=== PATIENT | female | born 1995 | race Caucasian/White ===

== ENCOUNTER → 2025-02-05 09:16 | Outpatient (CLI) | payer OTHER, SELFPAY ==
--- NOTE | 2025-02-05 09:17 | DI.US.S_ITS ---
PROCEDURE: US OB <= 14 WEEKS FETUS INDICATIONS: DATING OUTSIDE/PRIOR DATING DATA: Last menstrual period (LMP): 11/09/2024. LMP-based estimated date of delivery (BYRON): 08/19/2025. First dating scan (date and location): 02/05/2025. Estimated date of delivery (BYRON) from first dating scan: 09/12/2025. TECHNIQUE: Real-time scanning was performed of the fetus and maternal pelvic organs, with image documentation. Endovaginal scanning was also performed to better visualize the fetus and maternal ovaries. COMPARISON: None. FINDINGS: Embryo: Single live intrauterine is identified with crown-rump length measuring 2.1 cm corresponding to 8 weeks 5 days Heart rate: 178 beats per minute There is appearance of likely perigestational hemorrhage measuring 1.2 x 0.5 x 0.5 cm. Maternal organs: Ovaries demonstrate likely left corpus luteal cyst.. IMPRESSION: Single live intrauterine with gestational age by ultrasound measuring 8 weeks 5 days. This is markedly discordant from LMP dating of 12 weeks 1 day. Interval follow-up may be detained for additional evaluation of dating. Small presumed perigestational hemorrhage. We strive to produce accurate, complete, and clear reports of imaging services. To assist us in improving patient care, this report was composed using standard report templates and voice recognition software. Therefore, it may contain abnormal punctuation, insertions and/or omissions. Occasional wrong-word or sound-alike substitutions may occur. Though we review the report and make efforts to correct it, we do recommend that the report be read carefully in proper context to recognize any text inaccuracies. Dictated by: Yvonne Menard M.D. on 02/05/2025 at 12:53 Approved by: Yvonne Menard M.D. on 02/05/2025 at 12:55
== END ==
PROVIDERS: PCP Student in an Organized Health Care Education/Training Program; Referring Provider Student in an Organized Health Care Education/Training Program; Visit Provider Student in an Organized Health Care Education/Training Program
DX: Z34.91 Encounter for supervision of normal pregnancy, unspecified, first trimester (principal); Z3A.10 10 weeks gestation of pregnancy
CPT/HCPCS: 76801; 76817

== ENCOUNTER → 2025-04-16 10:28 | Outpatient (CLI) | payer OTHER, SELFPAY ==
[2025-04-16 10:59] LABS: Add Manual Diff / Slide Review NO; Hematocrit 38.1 % (36-46); Hemoglobin 13.7 g/dL (12.0-16.0); Lymphocytes Absolute Auto 1200 /uL (1100-4500); Mean Corpuscular HGB Conc 35.9 % (30-36); Mean Corpuscular Hemoglobin 33.2 PG (26-34); Mean Corpuscular Volume 92.4 fL (80-100); Platelet Count 205 X10^3/uL (150-400)
[2025-04-16 11:53] LABS: Hemoglobin A1C% w Est Avg Glu 4.1 % (4.0-6.0)
[2025-04-16 11:54] LABS: Hepatitis B Surface Antigen NEGATIVE s/c (NEGATIVE)
[2025-04-16 12:11] LABS: HIV 1 & 2 Ab/Ag 4th Gen Combo NEGATIVE (NEGATIVE); Hep C Virus Ab w/Reflex Quant NEGATIVE s/c (NEGATIVE)
[2025-04-16 12:37] LABS: Appearance Urine UA CLEAR; Bilirubin Urine UA 1+ (NEGATIVE); Color Urine UA YELLOW; Glucose Urine UA NEGATIVE (Negative); Ketones Urine UA TRACE (NEGATIVE); Leukocyte Esterase Urine UA NEGATIVE (NEGATIVE); Nitrite Urine UA NEGATIVE (Negative); Occult Blood Urine UA NEGATIVE (Negative); Protein Urine UA TRACE (Negative); Specific Gravity Urine UA 1.020 (1.000-1.035); Urobilinogen Urine UA 1.0 E.U./dL (0.2)
[2025-04-16 12:39] LABS: pH Urine UA 6.5 (4.5-8.0)
[2025-04-16 12:58] LABS: Culture Indicated Urine Cult Not Indicated
[2025-04-16 13:01] LABS: Ictotest Urine Negative (Negative)
[2025-04-16 13:43] LABS: Urine Chlamydia NOT DETECTED; Urine N gonorrhoeae NOT DETECTED
== END ==
PROVIDERS: PCP Student in an Organized Health Care Education/Training Program; Referring Provider Student in an Organized Health Care Education/Training Program; Visit Provider Student in an Organized Health Care Education/Training Program
DX: O99.210 Obesity complicating pregnancy, unspecified trimester (principal); Z3A.18 18 weeks gestation of pregnancy
CPT/HCPCS: 36415; 80055; 81003; 81015; 82105; 82677; 83036; 84702; 86336; 86787; 86803; 86850; 86900; 86901; 87086; 87389; 87491; 87591

== ENCOUNTER → 2025-06-11 10:30 | Outpatient (CLI) | payer OTHER, SELFPAY ==
[2025-06-11 12:34] LABS: Hematocrit 37.6 % (36-46); Hemoglobin 12.9 g/dL (12.0-16.0)
[2025-06-11 13:18] LABS: GTT (PREG) 1 Hour PP 50gm Dose 125 mg/dL (76-139)
== END ==
PROVIDERS: PCP Student in an Organized Health Care Education/Training Program; Referring Provider Student in an Organized Health Care Education/Training Program; Visit Provider Student in an Organized Health Care Education/Training Program
DX: Z34.92 Encounter for supervision of normal pregnancy, unspecified, second trimester (principal); Z3A.24 24 weeks gestation of pregnancy
CPT/HCPCS: 36415; 82950; 85014; 85018

== ENCOUNTER → 2025-07-10 10:47 | Outpatient (CLI) | payer OTHER, SELFPAY ==
--- NOTE | 2025-07-10 10:48 | DI.US.S_ITS ---
PROCEDURE: US OB >= 14 WEEKS FETUS INDICATIONS: Additional View of face and heart needed OUTSIDE/PRIOR DATING DATA: Last menstrual period (LMP): 11/12/2024. LMP-based estimated date of delivery (BYRON): 08/19/2025. First dating scan (date and location): 02/05/2025. Estimated date of delivery (BYRON) from first dating scan: 09/12/2025. The calculations are made using the ultrasound BYRON of 09/12/2025. TECHNIQUE: Real-time scanning was performed of the fetus, with image documentation and biometric measurements. Endovaginal scanning: Not performed COMPARISON: [facility], OB FOLLOW UP, 05/13/2025, 12:32. [facility], OB >= 14 WEEKS FETUS, 04/27/2025, 11:25. FINDINGS: General: A single living intrauterine gestation is present. Presentation: Appears transverse. Placenta: Placental position is posterior, without previa. Amniotic fluid index: 11.5 cm, normal range is 5-24 cm. Single deepest vertical pocket is 3.3 cm. heart rate: 157 beats per minute. Maternal cervical canal: 4.3 cm long. Normal lower limit is 2.5 cm. No funneling. biometrics: Biparietal diameter: 7.4 cm, 29 weeks 5 days Head circumference: 28.9 cm, 31 weeks 5 days Abdominal circumference: 28.0 cm, 33 weeks 0 days Femur length: 5.9 cm, 30 weeks 6 days Clinically estimated gestational age: 30 weeks 6 days Composite gestational age from present scan: 31 weeks 2 days Estimated weight and percentile: 1867 g, 74th percentile. IMPRESSION: 1. Graves living intrauterine at 31 weeks 2 days based on today's ultrasound. Concordant with the prior dating. Fetus is in the 74th percentile for weight. 2. Normal placenta and amniotic fluid. We strive to produce accurate, complete, and clear reports of imaging services. To assist us in improving patient care, this report was composed using standard report templates and voice recognition software. Therefore, it may contain abnormal punctuation, insertions and/or omissions. Occasional wrong-word or sound-alike substitutions may occur. Though we review the report and make efforts to correct it, we do recommend that the report be read carefully in proper context to recognize any text inaccuracies. Dictated by: Mike Melara M.D. on 07/10/2025 at 19:04 Approved by: Mike Melara M.D. on 07/10/2025 at 19:12
== END ==
PROVIDERS: PCP Student in an Organized Health Care Education/Training Program; Referring Provider Student in an Organized Health Care Education/Training Program; Visit Provider Student in an Organized Health Care Education/Training Program
DX: Z34.83 Encounter for supervision of other normal pregnancy, third trimester (principal); Z3A.31 31 weeks gestation of pregnancy
CPT/HCPCS: 76811

== ENCOUNTER 2025-07-29 16:47 | Emergency (ER) | payer OTHER, SELFPAY ==
[2025-07-29 16:56] VITALS: BP 132/80; PULSE 86; RESP 18; O2SAT 100; BMI 43.1
--- NOTE | 2025-07-29 16:58 | EKG_ITS ---
[address] [address] Test Date: 2025-07-29 Pat Name: Margaret Grande Department: Room: Gender: Female Neonatal Pediatric Nurse: : 1995 Requested By: Order Number: [id number] Reading MD: Manjeet Ramírez MD Measurements Intervals Reader Rate: 80 P: 25 OH: 140 QRS: 34 QRSD: 74 T: 23 QT: 362 QTc: 417 Interpretive Statements Normal sinus rhythm with sinus arrhythmia Cannot rule out Anterior infarct , age undetermined Electronically Signed On 07-30-2025 7:38:53 PST by Manjeet Ramírez MD
[2025-07-29 16:59] VITALS: PULSE 88; RESP 12; O2SAT 100
[2025-07-29 17:00] VITALS: PULSE 83; RESP 15; O2SAT 100
--- NOTE | 2025-07-29 17:06 | ED.CHESTPAIN ---
HPI - Chest Pain General Chief Complaint: Chest Pain Stated Complaint: ABD/CHEST/ABD PAIN Time Seen by Provider: 07/29/25 17:06 Source: patient Mode of arrival: Wheelchair Limitations: no limitations History of Present Illness HPI narrative: 29yo @ 33w4d presents to ED with inferior rib/epigastric pain that started this morning with a dull ache and has been increasing throughout the day and is currently significant with radiation to her upper mid back. She reports pain with inhalation and exhalation. Denies any personal or family history of cardiac disease or blood clots. Patient denies any significant medical or surgical history. Denies fevers, chills, nausea, vomiting, diarrhea, shortness of breath, dizziness, headache, or urinary symptoms. Related Data Home Medications ?Medication ?Instructions ?Recorded ?Confirmed quetiapine 300 mg tablet (Seroquel) 300 mg PO BID 04/04/24 07/23/25 [id number] 400 mcg-om3 35 mg-dha 25 tab PO 01/12/25 07/23/25 mg-epa 5 mg-fish oil chewable tablet Previous Rx's ?Medication ?Instructions ?Recorded metformin 500 mg tablet 500 mg PO BID #30 tabs 08/29/24 Allergies Allergy/AdvReac Type Severity Reaction Status Date / Time No Known Drug Allergies Allergy Verified 07/29/25 16:55 Review of Systems Review of Systems ROS Unobtainable: All systems reviewed & are unremarkable except as noted in HPI and below Patient History Medical History (Updated 08/04/25 @ 05:55 by Mp Haley MD) Pneumonia (~2008) Auditory hallucinations Encounter for IUD removal High risk medication use Surgical History (Updated 01/12/25 @ 11:09 by Mary Tee RN) History of root canal procedure (~2022) History of delivery Family History (Updated 01/12/25 @ 11:12 by Mary Tee RN) Father Stroke Alcoholism Grandfather Lung cancer Heavy smoker Granddaughter Pneumonia Social History marital status: number of children: 2 household members: spouse and children lives independently: Yes caregiver/support person: Yes housing: apartment pets and animals: Yes (dogs, cats) education level: vocational occupational status: unemployed current occupational exposures/hazards: No special dixie needs: No travel history: over 6 months ago seatbelt use: always water heater temp set < 120 deg: Yes working smoke detector in home: Yes fire extinguisher in home: Yes carbon monox detector in home: Yes firearms in home: Yes firearms unloaded and locked: Yes do you feel safe at home: Yes Tobacco: How many years used: 15 quit status: considering quitting second hand exposure: No alcohol intake: former substance use type: former substance user well-balanced diet: about half the time daily servings fruits/ve-4 caffeine: No Type(s) of exercise: other Smoking Status: Never smoker Exam Narrative Exam Narrative: Patient appears to be in [id number] distress secondary to pain. Patient with appropriately gravid abdomen. Patient with mild tenderness to inferior ribs. Lungs are clear heart regular rate and rhythm. Initial Vital Signs Initial Vital Signs: Vital Signs Pulse Rate 86 07/29/25 16:56 Respiratory Rate 18 07/29/25 16:56 Blood Pressure 132/80 07/29/25 16:56 Pulse Oximetry 100 07/29/25 16:56 Oxygen Delivery Method Room Air 07/29/25 16:56 HENWV Head: normal to inspection Ears: external ears normal Nose: external nose normal and nares normal Face and sinus: sinuses nontender, face symmetric, ecchymosis not on the right, not on the left and not bilaterally, erythema not on the right, not on the left and not bilaterally and edema not on the right, not on the left and not bilaterally Mouth: lip normal Eyes General: Yes appearance normal, both eyes and all related structures Eyelids: eyelids normal Sclera: sclerae normal Pupils: PERRL Neck Neck: normal visual inspection Resp Effort & Inspection: normal respiratory effort and able to speak in complete sentences Cardio Rate: regular rate Rhythm: regular rhythm Pulses: radial pulses present General: bimanual renal exam normal bilaterally Back/Spine/Pelvis Back: normal to inspection Skin General: no rashes or lesions noted Neuro General: patient alert, patient awake, patient oriented x3, gait normal, moves all extremities, normal light touch, pain and propioception, no focal motor deficits and CN's II-XI intact bilaterally Cognition: normal cognition Speech: speech normal Gait: normal gait Motor: muscle tone normal throughout Sensory Exam: no sensory deficits noted Extrem General: normal to inspection Psych Appearance: grossly normal Mental Status: mental status grossly normal Speech and Movement: speech and movement normal Mood: congruent mood Attitude: cooperative Thought Process: normal Thought Content: normal Judgment: judgment good Course Vital Signs Vital signs: Vital Signs - 8 hr 07/29/25 16:56 Pulse Rate 86 Respiratory Rate 18 Blood Pressure 132/80 Pulse Oximetry 100 Oxygen Delivery Method Room Air MDM - Chest Pain ECG Data Interpretation: [1658] EKG is normal sinus rhythm rate [80] and free of any signs of ischemia or ectopy. No ST segmental elevation or depression. No T wave inversions MDM Narrative Medical decision making narrative: Pt presents w/inferior rib/epigastric pain. Chest x-ray considered for pneumonia, pneumothorax, or congestive heart failure, however deferred due to reassuring hx and physical/. EKG, troponin in consideration of arrhythmia, Acute Coronary Syndrome, Acute Myocardial Infarction, however deferred due to reassuring hx and physical. Patient likely is having an acute issue related to late stage . For safest care of patient will be immediately transported to labor and delivery where she will be assessed by OBGYN on-call Given no history of blood clots, O2 sat normal on room air no significant tachypnea or tachycardia noted. PE unlikely at this time. Acute ACS also unlikely given normal EKG. Patient is stable for transfer to labor and delivery floor Discharge Plan Departure Patient Disposition: Admitted as Observation Clinical Impression: Abdominal pain, acute
--- NOTE | 2025-07-29 17:12 | PC.NURSE ---
1704: Provider Sudha deems safe to discharge from ED and would like patient to go over to labor and delivery for evaluation. Patient wheeled over with family. Patient is alert, oriented and GCS 15 at time of discharge form the emergency department.
--- NOTE | 2025-07-29 17:22 | PC.NURSE ---
Addendum entered by Little Montemayor RN 07/29/25 17:28: Time of note below [id number] Original Note: Provider Sudha in room assessing patient, he asks if any bleeding, spotting, or discharge and she denies. Provider Sudha asks for OB to be notified. ELISE Pizano calls OB and speaks with ELISE Armstrong about patient and notifies her that patient will go to OB once cleared in ED. EKG performed and given to Sudha. Provider Sudha clears patient for discharge and patient wheeled over to OB by this RN and ELISE Pizano.
== END 2025-07-29 17:06 | disposition admitted as inpatient to this hospital (09) ==
PROVIDERS: Emergency Provider Emergency Medicine; PCP Student in an Organized Health Care Education/Training Program
DX: O26.893 Other specified pregnancy related conditions, third trimester (principal); R10.9 Unspecified abdominal pain; Z3A.33 33 weeks gestation of pregnancy
CPT/HCPCS: 36415; 93005; 93010; 99283

== ENCOUNTER 2025-07-29 17:14 | Observation (INO) | payer OTHER, SELFPAY ==
--- NOTE | 2025-07-29 17:48 | DI.US.S_ITS ---
PROCEDURE: US ABDOMEN COMPLETE INDICATIONS: RUQ/epigastric pain in TECHNIQUE: Real-time scanning was performed of the abdominal and retroperitoneal organs, with image documentation. COMPARISON: None. FINDINGS: Liver: Liver measures 17.2 cm. No focal mass. Gallbladder: Multiple mobile foci of increased echogenicity. No wall thickening. No pericholecystic edema. Negative sonographic Shine's sign. Biliary ducts: Intrahepatic bile ducts are non-dilated. Extrahepatic bile duct caliber measures 3.8 mm. Normal is 6-7 mm or less in diameter, or 10 mm or less post-cholecystectomy. Pancreas: Visualized portions of the pancreas are sonographically normal. Miscellaneous: No free abdominal fluid. IMPRESSION: Cholelithiasis without appearance of cholecystitis. Dictated by: Yvonne Menard M.D. on 07/29/2025 at 19:03 Approved by: Yvonne Menard M.D. on 07/29/2025 at 19:04
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
[2025-07-29 17:56] LABS: Add Manual Diff / Slide Review NO; Hematocrit 37.8 % (36-46); Hemoglobin 13.3 g/dL (12.0-16.0); Lymphocytes Absolute Auto 1500 /uL (1100-4500); Mean Corpuscular HGB Conc 35.0 % (30-36); Mean Corpuscular Hemoglobin 31.4 PG (26-34); Mean Corpuscular Volume 89.7 fL (80-100); Platelet Count 185 X10^3/uL (150-400)
[2025-07-29 17:57] LABS: Appearance Urine UA CLEAR; Bilirubin Urine UA NEGATIVE (NEGATIVE); Color Urine UA YELLOW; Glucose Urine UA NEGATIVE (Negative); Ketones Urine UA NEGATIVE (NEGATIVE); Leukocyte Esterase Urine UA NEGATIVE (NEGATIVE); Nitrite Urine UA NEGATIVE (Negative); Occult Blood Urine UA NEGATIVE (Negative); Protein Urine UA NEGATIVE (Negative); Specific Gravity Urine UA 1.010 (1.000-1.035); Urobilinogen Urine UA 0.2 E.U./dL (0.2)
[2025-07-29 18:01] LABS: pH Urine UA 7.0 (4.5-8.0)
[2025-07-29 18:02] LABS: Culture Indicated Urine Cult Not Indicated
[2025-07-29 18:08] LABS: Alanine Aminotransferase 18 IU/L (<35); Albumin 3.8 g/dL (3.5-5.0); Albumin Globulin Ratio 1.2 (1.0-2.8); Alkaline Phosphatase 89 U/L (38-126); Blood Urea Nitrogen 7 mg/dL (7-17); Calcium 9.2 mg/dL (8.4-10.2); Carbon Dioxide 21 mmol/L (22-32); Chloride 107 mmol/L (98-107); Estimated Glomerular Filt Rate > 60 mL/min (>60); Globulin 3.1 g/dL (1.7-4.1); Glucose 104 mg/dL (70-99); HEMOLYSIS < 15 (0-50); Lipase 83 U/L (23-300); Potassium 3.9 mmol/L (3.4-5.1); Sodium 136 mmol/L (137-145); Total Protein 6.9 g/dL (6.3-8.2)
[2025-07-29] MEDS: MAG HYDROX/ALUMINUM/SIMETH SUS 30 ML, LIDOCAINE VISCOUS 2% 15 ML PO (18:08)
[2025-07-29] MEDS: MORPHINE 2 MG/ML INJ IV (18:59)
[2025-07-29] MEDS: LACTATED RINGERS 1,000 ML 125 ML IV (19:02)
== END 2025-07-29 20:18 | disposition home or self-care (01) ==
PROVIDERS: Admitting Provider Emergency Medicine; PCP Student in an Organized Health Care Education/Training Program; Referring Provider Obstetrics & Gynecology; Visit Provider Obstetrics & Gynecology
DX: O26.893 Other specified pregnancy related conditions, third trimester (principal); R10.11 Right upper quadrant pain; R07.9 Chest pain, unspecified; R10.13 Epigastric pain; Z3A.33 33 weeks gestation of pregnancy
CPT/HCPCS: 36415; 59025; 59050; 76700; 76815; 80053; 81001; 83690; 85025; 87086; 93005; 93010; 96360; 99283; G0378; G0379; J2270; J7120

== ENCOUNTER 2025-08-04 10:47 | Outpatient (CLI) | payer OTHER, SELFPAY ==
[2025-08-04] MEDS: RHO(D) IMMUNE GLOBULIN 1,500 UNIT SYRINGE 1500 UNIT IM (11:55)
== END 2025-08-04 12:01 | disposition home or self-care (01) ==
LOC: LABOR 11:10 → OB 13:38
PROVIDERS: PCP Student in an Organized Health Care Education/Training Program; Referring Provider Student in an Organized Health Care Education/Training Program; Visit Provider Student in an Organized Health Care Education/Training Program
DX: O99.213 Obesity complicating pregnancy, third trimester (principal); E66.9 Obesity, unspecified; O99.333 Smoking (tobacco) complicating pregnancy, third trimester; F17.290 Nicotine dependence, other tobacco product, uncomplicated; Z3A.34 34 weeks gestation of pregnancy
CPT/HCPCS: 59025; 96372; G0378; G0379; J2790

== ENCOUNTER 2025-08-10 19:12 | Observation (INO) | payer OTHER, SELFPAY ==
[2025-08-10] VITALS (8 sets, daily range): BP systolic 105–118; BP diastolic 50–71; PULSE 71–87; RESP 18–20; TEMP 36.7; O2SAT 98–100; BMI 43.0
--- NOTE | 2025-08-10 20:00 | DI.US.S_ITS ---
PROCEDURE: US ABDOMEN LIMITED INDICATIONS: RUQ pain, known gallstones TECHNIQUE: Real-time scanning was performed of the abdominal and retroperitoneal organs, with image documentation. COMPARISON: [facility], US, US ABDOMEN COMPLETE, 07/29/2025, 18:27. FINDINGS: Liver: Limited evaluation of the liver appear unremarkable. Gallbladder: Multiple mobile gallstones. No wall thickening. No pericholecystic fluid. Positive/abnormal sonographic Shine sign Biliary ducts: Intrahepatic bile ducts are non-dilated. Extrahepatic bile duct caliber measures 5 mm. Normal is 6-7 mm or less in diameter, or 10 mm or less post-cholecystectomy. Pancreas: Pancreas not visualized secondary to overlying bowel gas. Miscellaneous: No free abdominal fluid. IMPRESSION: Cholelithiasis with sonographic findings suggestive of acute cholecystitis. Dictated by: Nguyễn Chatman M.D. on 08/10/2025 at 22:06 Approved by: Nguyễn Chatman M.D. on 08/10/2025 at 22:08
[2025-08-10 21:50] LABS: Add Manual Diff / Slide Review NO; Hematocrit 37.1 % (36-46); Hemoglobin 12.9 g/dL (12.0-16.0); Lymphocytes Absolute Auto 1700 /uL (1100-4500); Mean Corpuscular HGB Conc 34.7 % (30-36); Mean Corpuscular Hemoglobin 31.2 PG (26-34); Mean Corpuscular Volume 89.9 fL (80-100); Platelet Count 184 X10^3/uL (150-400)
[2025-08-10] MEDS: ACETAMINOPHEN IV 1,000 MG/100 ML VIAL 400 MG IV (21:51)
[2025-08-10] MEDS: SODIUM CHLORIDE 0.9% 1,000 ML 1000 ML IV (21:51)
[2025-08-10 21:58] LABS: INR 0.9 (0.9-1.3); Prothrombin Time 10.7 SECONDS (9.4-12.5)
[2025-08-10 22:01] LABS: PTT Partial Thromboplastin Tim 25 SECONDS (25.1-36.5)
[2025-08-10 22:03] LABS: Alanine Aminotransferase 19 IU/L (<35); Albumin 3.7 g/dL (3.5-5.0); Albumin Globulin Ratio 1.2 (1.0-2.8); Alkaline Phosphatase 100 U/L (38-126); Blood Urea Nitrogen 5 mg/dL (7-17); Calcium 9.2 mg/dL (8.4-10.2); Carbon Dioxide 22 mmol/L (22-32); Chloride 107 mmol/L (98-107); Estimated Glomerular Filt Rate > 60 mL/min (>60); Globulin 3.0 g/dL (1.7-4.1); Glucose 103 mg/dL (70-99); HEMOLYSIS < 15 (0-50); Lipase 75 U/L (23-300); Potassium 3.7 mmol/L (3.4-5.1); Sodium 136 mmol/L (137-145); Total Protein 6.7 g/dL (6.3-8.2)
--- NOTE | 2025-08-10 23:17 | ED_ITS ---
HPI - Abdominal Pain General Chief Complaint: Abdominal Pain Stated Complaint: Upper abd px/flair up Time Seen by Provider: 08/10/25 20:00 Source: patient Mode of arrival: Ambulatory History of Present Illness HPI narrative: Patient is a 29-year-old female 002 at 33 weeks and 4 days presenting today with right upper quadrant pain. Reports say that it started this morning with a dull ache increasing throughout the day located in right upper quadrant radiating to her back. She was actually seen and evaluated on 07/29/2025 for something similar, ultimately admitted overnight, evaluated by OB discharged home. She currently is at the side of the bed moaning in pain unable to get comfortable tearful holding her right upper quadrant. She reports that this does not feel like labor does not feel like her water has broke not having lower abdominal pain or pressure or back pain. Related Data Home Medications ?Medication ?Instructions ?Recorded ?Confirmed quetiapine 300 mg tablet (Seroquel) 300 mg PO BID 03/1108/04/25 [id number] 400 mcg-om3 35 mg-dha 25 tab PO 01/12/2507/12 mg-epa 5 mg-fish oil chewable tablet Previous Rx's ?Medication ?Instructions ?Recorded metformin 500 mg tablet 500 mg PO BID #30 tabs 08/29 Allergies Allergy/AdvReac Type Severity Reaction Status Date / Time No Known Drug Allergies Allergy Verified 08/10/25 19:51 Patient History Medical History (Updated 08/11/25 @ 02:04 by Cheyenne Fraga DO) Pneumonia (~2008) Auditory hallucinations Encounter for IUD removal High risk medication use Surgical History (Updated 01/12/25 @ 11:09 by Mary Tee RN) History of root canal procedure (~2022) History of delivery Family History (Updated 01/12/25 @ 11:12 by Mary Tee RN) Father Stroke Alcoholism Grandfather Lung cancer Heavy smoker Granddaughter Pneumonia Social History marital status: number of children: 2 household members: spouse and children lives independently: Yes caregiver/support person: Yes housing: apartment pets and animals: Yes (dogs, cats) education level: vocational occupational status: unemployed current occupational exposures/hazards: No special dixie needs: No travel history: over 6 months ago seatbelt use: always water heater temp set < 120 deg: Yes working smoke detector in home: Yes fire extinguisher in home: Yes carbon monox detector in home: Yes firearms in home: Yes firearms unloaded and locked: Yes do you feel safe at home: Yes Tobacco: How many years used: 15 quit status: considering quitting second hand exposure: No alcohol intake: former substance use type: former substance user well-balanced diet: about half the time daily servings fruits/ve-4 caffeine: No Type(s) of exercise: other tobacco type: vaping Exam Initial Vital Signs Initial Vital Signs: Vital Signs Temperature 98.0 F 08/10/25 19:51 Pulse Rate 85 08/10/25 19:51 Respiratory Rate 18 08/10/25 19:51 Blood Pressure 118/70 08/10/25 19:51 Pulse Oximetry 100 08/10/25 19:51 Oxygen Delivery Method Room Air 08/10/25 19:51 GENERAL: Alert tearful 29-year-old female at side of bed clearly uncomfortable grabbing right upper quadrant HEENT: Head atraumatic,EOMI, pupils reactive, face symmetric, moist mucous membranes CARDIOVASCULAR: Regular rate and rhythm without murmurs, rubs or gallops. RESPIRATORY: Breath sounds equal bilaterally, no wheezes rales or rhonchi. ABDOMEN: Soft, gravid tender right upper quadrant : No CVA tenderness EXTREMITIES: Normal range of motion, no clubbing or edema. Neurovascularly intact NEUROLOGICAL: Alert and oriented x4.Normal gait and speech. Cranial nerves II through XII grossly intact. SKIN: Warm, dry, no laceration, no petechiae, no rashes or lesions. Course Orders Ordered: ED Orders 08/10/25 20:00 US abdomen limited Stat 08/10/25 21:40 Complete Blood Count AUTO DIFF Stat Comprehensive Metabolic Panel Stat Lipase Stat PTT Partial Thromboplastin Carlos Alberto Stat Prothrombin Time INR Stat 08/10/25 23:35 Consult to Physician Stat Acetaminophen (Acetaminophen 325 Mg Tablet) 650 mg PO Q6HR PRN PRN Reason: Fever/Mild Pain (1-3) Hydromorphone HCl (Hydromorphone Hcl 0.5 Mg/0.5 Ml Syringe) 0.5 mg IV Q2H PRN PRN Reason: Pain, Severe (7-10) Sodium Chloride (Normal Saline 0.9%) 1,000 mls @ 125 mls/hr IV CONT CIRO Last Admin: 08/10/25 23:38 Dose: 125 mls/hr Documented By: ALBERTO Ondansetron HCl (Ondansetron 4 Mg/2 Ml Inj) 4 mg IV Q4HR PRN PRN Reason: Nausea And Vomiting Discontinued Medications Hydromorphone HCl (Hydromorphone 1 Mg/Ml Syringe) 1 mg IV NOW ONE Stop: 08/10/25 23:17 Last Admin: 08/10/25 23:18 Dose: 1 mg Documented By: JANET Acetaminophen ([place] [place]) 1,000 mg in 100 mls @ 400 mls/hr IV NOW ONE Stop: 08/10/25 20:14 Last Infusion: 08/10/25 22:08 Dose: Infused Documented By: Admin: 08/10/25 21:51 Dose: 400 mls/hr Documented By: JANET Sodium Chloride (Normal Saline 0.9%) 1,000 mls @ 1,000 mls/hr IV BOLUS ONE Stop: 08/10/25 21:46 Last Infusion: 08/10/25 22:39 Dose: Infused Documented By: Admin: 08/10/25 21:51 Dose: 1,000 mls/hr Documented By: JANET Ceftriaxone Sodium 1,000 mg/ (Sodium Chloride) 100 mls @ 200 mls/hr IV NOW ONE Stop: 08/10/25 23:31 Last Infusion: 08/11/25 00:41 Dose: Infused Documented By: Admin: 08/10/25 23:36 Dose: 200 mls/hr Documented By: ALBERTO Metronidazole (Flagyl) 500 mg in 100 mls @ 100 mls/hr IV NOW ONE Stop: 08/11/25 00:34 Last Infusion: 08/11/25 01:33 Dose: Infused Documented By: Admin: 08/11/25 00:33 Dose: 100 mls/hr Documented By: ALBERTO Vital Signs Vital signs: Vital Signs - 8 hr 08/10/25 19:51 08/10/25 21:47 08/10/25 21:49 Temperature 98.0 F Pulse Rate 85 71 73 Respiratory Rate 18 20 Blood Pressure 118/70 Pulse Oximetry 100 99 98 Oxygen Delivery Method Room Air Room Air 08/10/25 21:49 08/10/25 22:00 08/10/25 22:00 Temperature Pulse Rate 72 Respiratory Rate Blood Pressure 108/60 105/63 Pulse Oximetry 99 Oxygen Delivery Method 08/10/25 22:30 08/10/25 22:30 08/10/25 23:00 Temperature Pulse Rate 79 79 Respiratory Rate Blood Pressure 109/71 Pulse Oximetry 100 98 Oxygen Delivery Method 08/10/25 23:02 08/10/25 23:02 08/10/25 23:30 Temperature Pulse Rate 78 87 Respiratory Rate 18 Blood Pressure 110/50 L Pulse Oximetry 100 98 Oxygen Delivery Method Room Air MDM - Abdominal Pain Lab Data 08/10/25 21:40 08/10/25 21:40 Labs: Lab Results 08/10/25 Range/Units 21:40 WBC 7.3 (4.5-11.0) X10^3/uL RBC 4.13 (4.0-5.2) X10^6/uL Hgb 12.9 (12.0-16.0) g/dL Hct 37.1 (36-46) % MCV 89.9 (80-100) fL MCH 31.2 (26-34) PG MCHC 34.7 (30-36) % RDW 13.6 (11.6-14.8) % Plt Count 184 (150-400) X10^3/uL Neut % (Auto) 68.8 (50-75) % Lymph % (Auto) 24.0 L (25-40) % [place] % (Auto) 6.6 (3-14) % Eos % (Auto) 0.4 L (2-4) % Baso % (Auto) 0.2 (0-2) % Neut # (Auto) 5000 (1039-6118) /uL Lymph # (Auto) 1700 (7899-6378) /uL [place]linger # (Auto) 500 (0-900) /uL Eos # (Auto) 0 (0-450) /uL Baso # (Auto) 0 (0-100) /uL PT 10.7 (9.4-12.5) SECONDS INR 0.9 (0.9-1.3) APTT 25 L (25.1-36.5) SECONDS Sodium 136 L (137-145) mmol/L Potassium 3.7 (3.4-5.1) mmol/L Chloride 107 (98-107) mmol/L Carbon Dioxide 22 (22-32) mmol/L BUN 5 L (7-17) mg/dL Creatinine 0.51 L (0.52-1.04) mg/dL Estimated GFR > 60 (>60) mL/min BUN/Creatinine Ratio 9.8 (6-22) Glucose 103 H (70-99) mg/dL Calcium 9.2 (8.4-10.2) mg/dL Total Bilirubin 0.6 (0.2-1.3) mg/dL AST 23 (14-36) IU/L ALT 19 (<35) IU/L Alkaline Phosphatase 100 (38-126) U/L Total Protein 6.7 (6.3-8.2) g/dL Albumin 3.7 (3.5-5.0) g/dL Globulin 3.0 (1.7-4.1) g/dL Albumin/Globulin Ratio 1.2 (1.0-2.8) Lipase 75 (23-300) U/L Imaging Data US - abdomen: Radiologist's Impression: PROCEDURE: US ABDOMEN LIMITED INDICATIONS: RUQ pain, known gallstones TECHNIQUE: Real-time scanning was performed of the abdominal and retroperitoneal organs, with image documentation. COMPARISON: [facility], US, US ABDOMEN COMPLETE, 07/29/2025, 18:27. FINDINGS: Liver: Limited evaluation of the liver appear unremarkable. Gallbladder: Multiple mobile gallstones. No wall thickening. No pericholecystic fluid. Positive/abnormal sonographic Shine sign Biliary ducts: Intrahepatic bile ducts are non-dilated. Extrahepatic bile duct caliber measures 5 mm. Normal is 6-7 mm or less in diameter, or 10 mm or less post-cholecystectomy. Pancreas: Pancreas not visualized secondary to overlying bowel gas. Miscellaneous: No free abdominal fluid. IMPRESSION: Cholelithiasis with sonographic findings suggestive of acute cholecystitis. Dictated by: Nguyễn Chatman M.D. on 08/10/2025 at 22:06 MDM Narrative Medical decision making narrative: MDM CC: Abdominal pain Complicating co-morbidities: Currently 33 weeks not taking Seroquel or metformin at this time, as stated on her med Data collected from: Patient has been records Medical records reviewed: Previous record and visit from 07/29/2025 reviewed. Ultrasound at that time showed cholelithiasis without cholecystitis. Differential considered: Active labor cholecystitis cholelithiasis choledocholithiasis pancreatitis appendicitis Exam documented above, pertinent findings include: Alert tearful 29-year-old female appears in pain uncomfortable tender right upper quadrant Lab Test results independently reviewed as above. Pertinent findings: CBC no leukocytosis within normal limits CMP no abnormality Bilirubin liver enzymes within normal limits lipase 75 Imaging studies independently reviewed: Ultrasound shows cholelithiasis with cholecystitis Consultations: [id number] updated on patient's symptoms test results agrees to consult if surgery requests, okay to get NST. Would get NST pre and postop if needed 232, Dr. Heaton surgery on-call updated on patient's symptoms test results OB recommendations agrees to admit to observation antibiotics Rocephin Flagyl monitor Treatments: Tylenol Rocephin Flagyl Dilaudid Zofran IV fluids Re-evaluations: Initially patient did fine with Tylenol however pain started escalating just prior to my evaluation tearful she received Dilaudid and it did start to help in calm down. Discussion: Patient 29-year-old female currently 33 weeks presenting today with right upper quadrant pain. He has evidence of cholelithiasis with cholecystitis on ultrasound. She has no leukocytosis no fever liver enzymes and bilirubin within normal limits but multiple stones seen on ultrasound. Patient's pain is much better after Dilaudid. Blood pressure within normal limits unclear return for preeclampsia, or abruption Nursing did do an NST in the ED which per nursing reports it is nonreactive and this was relayed to Dr. Ernandez by nursing staff. Discharge Plan Departure Patient Disposition: Admitted as Observation Clinical Impression: Cholecystitis, acute with cholelithiasis, Third trimester Admit Date/Time: 08/10/25 23:37 Admit Provider: Enio Heaton
[2025-08-10] MEDS: SODIUM CHLORIDE 0.9% 1,000 ML 125 ML IV (23:38)
[2025-08-11] VITALS (8 sets, daily range): BP systolic 101–110; BP diastolic 56–71; PULSE 70–87; RESP 15–16; O2SAT 98–100; BMI 43.0
[2025-08-11] MEDS: metroNIDAZOLE 500 MG/100 ML PIGGYBACK 100 MG IV (00:33)
[2025-08-11 00:37] LABS: Appearance Urine UA CLEAR; Bilirubin Urine UA NEGATIVE (NEGATIVE); Color Urine UA YELLOW; Glucose Urine UA NEGATIVE (Negative); Ketones Urine UA 1+ (NEGATIVE); Leukocyte Esterase Urine UA NEGATIVE (NEGATIVE); Nitrite Urine UA NEGATIVE (Negative); Occult Blood Urine UA NEGATIVE (Negative); Protein Urine UA NEGATIVE (Negative); Specific Gravity Urine UA 1.010 (1.000-1.035); Urobilinogen Urine UA 0.2 E.U./dL (0.2)
[2025-08-11 00:41] LABS: pH Urine UA 6.5 (4.5-8.0)
[2025-08-11 00:48] LABS: Culture Indicated Urine Cult Not Indicated
--- NOTE | 2025-08-11 01:38 | PC.NURSE ---
Non-reactive NST after 40 mins on monitor. Multiple position changes and stimulation performed. EFM Category 1 tracing baseline 125 bpm, moderate variability, no decels, no accels. Reported findings to Dr. Whalen, OB OC, and is aware of findings. [id number].
[2025-08-11 06:25] LABS: Add Manual Diff / Slide Review NO; Hematocrit 32.1 % (36-46); Hemoglobin 11.3 g/dL (12.0-16.0); Lymphocytes Absolute Auto 1700 /uL (1100-4500); Mean Corpuscular HGB Conc 35.2 % (30-36); Mean Corpuscular Hemoglobin 31.6 PG (26-34); Mean Corpuscular Volume 89.8 fL (80-100); Platelet Count 153 X10^3/uL (150-400)
[2025-08-11 06:36] LABS: Alanine Aminotransferase 17 IU/L (<35); Albumin 2.9 g/dL (3.5-5.0); Albumin Globulin Ratio 1.1 (1.0-2.8); Alkaline Phosphatase 78 U/L (38-126); Blood Urea Nitrogen 4 mg/dL (7-17); Calcium 8.2 mg/dL (8.4-10.2); Carbon Dioxide 21 mmol/L (22-32); Chloride 110 mmol/L (98-107); Estimated Glomerular Filt Rate > 60 mL/min (>60); Globulin 2.7 g/dL (1.7-4.1); Glucose 87 mg/dL (70-99); HEMOLYSIS 17 (0-50); Potassium 4.1 mmol/L (3.4-5.1); Sodium 135 mmol/L (137-145); Total Protein 5.6 g/dL (6.3-8.2)
--- NOTE | 2025-08-11 06:42 | P.DS_ITS ---
History of Present Illness History of Present Illness Date Patient Seen: 08/11/25 Time Patient Seen: 06:42 Chief complaint: Upper abd px/flair up Narrative: 29yo F, 35 weeks , currently scheduled for 09/[address] Hawkins. Presents to ED with symptomatic cholelithiasis. Ultrasound demonstrates no wall thickening or pericholecystic fluid, but positive sonographic Shine's sign. WBC normal; LFTs normal. Discharge Providers Provider Date of admission: 08/10/25 23:37 Discharge Date: 08/11/25 Primary care physician: Rebeka Hawkins MD Consults: 08/10/25 23:35 Consult to Physician Stat Comment: Consulting Provider: Lashon Whalen Reason for consultation: Cholelithiasis Has provider been notified: Yes Discharge provider: Enio Heaton MD Summary Hospital Course Discharge Diagnosis: Symptomatic cholelithiasis Hospital Course: Patient presented to ED with RUQ pain uncontrolled by acetaminophen and given IV Rocephin/Flagyl and IV pain meds. Admitted but remained in ED because of no beds. This morning, she feels much better. Plan is to control symptoms until she delivers. She desires lap choley day after and we discussed pros and cons of timing. Discussed with Dr. Hawkins by phone. Will continue po abx Augmentin, hydrocodone for pain and ondansetron for nausea. She will return with uncontrolled pain, n/v, fever, jaundice. Status at Discharge Cognitive/behavioral status at discharge: oriented Functional status at discharge: independent ambulation Overall status at discharge: patient is progressing back to baseline Time Spent with Patient Time spent: Greater than 30 minutes Exam Vital Signs (past 8 hours): - 08/10/25 23:00 08/10/25 23:02 08/10/25 23:02 Pulse Rate 79 78 Respiratory Rate Blood Pressure 110/50 L Pulse Oximetry 98 100 Oxygen Delivery Method 08/10/25 23:30 08/11/25 00:00 08/11/25 00:10 Pulse Rate 87 85 Respiratory Rate 18 Blood Pressure 101/56 L Pulse Oximetry 98 98 Oxygen Delivery Method Room Air 08/11/25 00:10 08/11/25 00:30 08/11/25 01:00 Pulse Rate 77 82 84 Respiratory Rate Blood Pressure Pulse Oximetry 100 98 100 Oxygen Delivery Method 08/11/25 01:30 08/11/25 01:48 08/11/25 01:49 Pulse Rate 81 70 70 Respiratory Rate 15 Blood Pressure 110/71 Pulse Oximetry 99 99 98 Oxygen Delivery Method Room Air 08/11/25 01:49 Pulse Rate Respiratory Rate Blood Pressure 110/71 Pulse Oximetry Oxygen Delivery Method Oxygen Delivery Method Room Air Narrative Exam Narrative: Const General: healthy appearing, comfortable and no acute distress Orientation: alert and oriented x3 HENMT Ears: hearing grossly normal bilaterally Eyes Visual Michelle: normal visual michelle by confrontation Conjunctivae: conjunctivae normal Sclera: sclerae normal EOM: EOM intact bilaterally Resp Effort & Inspection: normal respiratory effort and able to speak in complete sentences Cardio Rate: regular rate GI Palpation: soft, gravid, +RUQ pain, improved pain control after IV meds and abx Extrem General: no pedal edema and no calf tenderness Objective Labs 08/11/25 06:14 08/11/25 06:14 Labs: Laboratory Results - last 24 hr 08/10/25 08/10/25 08/11/25 21:40 23:45 06:14 WBC 7.3 6.2 RBC 4.13 3.57 L Hgb 12.9 11.3 L Hct 37.1 32.1 L MCV 89.9 89.8 MCH 31.2 31.6 MCHC 34.7 35.2 RDW 13.6 14.0 Plt Count 184 153 Neut % (Auto) 68.8 66.1 Lymph % (Auto) 24.0 L 26.7 [place] % (Auto) 6.6 6.7 Eos % (Auto) 0.4 L 0.4 L Baso % (Auto) 0.2 0.1 Neut # (Auto) 5000 4100 Lymph # (Auto) 1700 1700 [place] # (Auto) 500 400 Eos # (Auto) 0 0 Baso # (Auto) 0 0 PT 10.7 INR 0.9 APTT 25 L Sodium 136 L 135 L Potassium 3.7 4.1 Chloride 107 110 H Carbon Dioxide 22 21 L BUN 5 L 4 L Creatinine 0.51 L 0.45 L Estimated GFR > 60 > 60 BUN/Creatinine Ratio 9.8 8.9 Glucose 103 H 87 Calcium 9.2 8.2 L Total Bilirubin 0.6 0.5 AST 23 23 ALT 19 17 Alkaline Phosphatase 100 78 Total Protein 6.7 5.6 L Albumin 3.7 2.9 L Globulin 3.0 2.7 Albumin/Globulin Ratio 1.2 1.1 Lipase 75 Urine Color Yellow Urine Appearance Clear Urine pH 6.5 Ur Specific [place]ahan 1.010 Urine Protein Negative Urine Glucose (UA) Negative Urine Ketones 1+ H Urine Occult Blood Negative Urine Nitrate Negative Urine Bilirubin Negative Urine Urobilinogen 0.2 Ur Leukocyte Esterase Negative Urine RBC None seen Urine WBC None seen Ur Squamous Epith Cells 1-5 /hpf Urine Bacteria None seen Ur Culture Indicated? Cult not indicated Vol Urine Centrifuged 10ml (spun) [facility] Medical History (Updated 08/11/25 @ 02:04 by Cheyenne Fraga DO) Pneumonia (~2008) Auditory hallucinations Encounter for IUD removal High risk medication use Surgical History (Updated 01/12/25 @ 11:09 by Mary Tee RN) History of root canal procedure (~2022) History of delivery Family History (Updated 01/12/25 @ 11:12 by Mary Tee RN) Father Stroke Alcoholism Grandfather Lung cancer Heavy smoker Granddaughter Pneumonia Social History marital status: number of children: 2 household members: spouse and children lives independently: Yes caregiver/support person: Yes housing: apartment pets and animals: Yes (dogs, cats) education level: vocational occupational status: unemployed current occupational exposures/hazards: No special dixie needs: No travel history: over 6 months ago seatbelt use: always water heater temp set < 120 deg: Yes working smoke detector in home: Yes fire extinguisher in home: Yes carbon monox detector in home: Yes firearms in home: Yes firearms unloaded and locked: Yes do you feel safe at home: Yes Tobacco: How many years used: 15 quit status: considering quitting second hand exposure: No alcohol intake: former substance use type: former substance user well-balanced diet: about half the time daily servings fruits/ve-4 caffeine: No Type(s) of exercise: other Discharge Assessment & Plan Assessment and Plan Assessment: Symptomatic cholelithiasis Plan of Treatment: Plan to control symptoms until after delivery Patient desires lap choley after where possible She will return for new or worsening symptoms D/W Dr. Hawkins Discharge Plan Discharge Plan Patient Disposition: Home Provider Discharge Comment: Take antibiotics until gone Take pain and nausea meds as needed Eat bland diet without fats, greasy or fried foods Return to ED with uncontrolled pain, nausea, vomiting, fever, jaundice Discharge orders & Medications Prescriptions: New hydrocodone-acetaminophen 5-325 mg tablet 1 tab PO Q4H PRN (Reason: pain) Qty: 30 0RF amoxicillin-pot clavulanate [Augmentin] 500-125 mg tablet 1 tab PO TID Qty: 21 0RF ondansetron 4 mg tablet,disintegrating 4 mg PO Q8H PRN (Reason: nausea and vomiting) Qty: 30 1RF Continued quetiapine [Seroquel] 300 mg tablet 300 mg PO BID metformin 500 mg tablet 500 mg PO BID Qty: 30 3RF [id number] oil 400 mcg-35 mg -25 mg-5 mg tablet,chewable PO Follow up/Referrals: Rebeka Hawkins MD [Primary Care Provider, Family Practice] Enio Heaton MD [Physician, General Surgery] Diet/Activity/Treatments Diet comment: Avoid fats, fried, greasy food; eat a bland diet Skin/Wound/Dressing Care Report to your healthcare provider any signs of infection, such as:: chills, fever, night sweats and increased pain Visit Report/Discharge Packet Instructions: DI for Prescription Opioid Use Stand Alone Forms: Patient Portal/API, Stroke Signs & Symptoms Discharge Data Primary Care Provider: Rebeka Hawkins PROFEE Charge Codes Discharge inpatient/observation: [id number]
--- NOTE | 2025-08-13 10:24 | P.HP_ITS ---
History of Present Illness History of Present Illness Date Patient Seen: 08/12/25 Chief complaint: Upper abd px/flair up Narrative: 29yo F, 35 weeks , currently scheduled for 09/[address] Hawkins. Presents to ED with symptomatic cholelithiasis. Ultrasound demonstrates no wall thickening or pericholecystic fluid, but positive sonographic Shine's sign. WBC normal; LFTs normal. [facility] Medical History (Updated 08/13/25 @ 10:26 by Enio Heaton MD) Pneumonia (~2008) Auditory hallucinations Encounter for IUD removal High risk medication use Surgical History (Updated 01/12/25 @ 11:09 by Mary Tee RN) History of root canal procedure (~2022) History of delivery Family History (Updated 01/12/25 @ 11:12 by Mary Tee, ELISE) Father Stroke Alcoholism Grandfather Lung cancer Heavy smoker Granddaughter Pneumonia Social History marital status: number of children: 2 household members: spouse and children lives independently: Yes caregiver/support person: Yes housing: apartment pets and animals: Yes (dogs, cats) education level: vocational occupational status: unemployed current occupational exposures/hazards: No special dixie needs: No travel history: over 6 months ago seatbelt use: always water heater temp set < 120 deg: Yes working smoke detector in home: Yes fire extinguisher in home: Yes carbon monox detector in home: Yes firearms in home: Yes firearms unloaded and locked: Yes do you feel safe at home: Yes Tobacco: How many years used: 15 quit status: considering quitting second hand exposure: No alcohol intake: former substance use type: former substance user well-balanced diet: about half the time daily servings fruits/ve-4 caffeine: No Type(s) of exercise: other Meds Home Medications and Allergies Home Medications ?Medication ?Instructions ?Recorded ?Confirmed ?Type [id number] 400 mcg-om3 35 mg-dha 25 tab PO 01/12/2512/02 History mg-epa 5 mg-fish oil chewable tablet amoxicillin 500 mg-potassium 1 tab PO TID #21 tabs 11/0408/12/25 Rx clavulanate 125 mg tablet (Augmentin) hydrocodone 5 mg-acetaminophen 325 1 tab PO Q4H PRN pa in #30 tabs 08/11/25 08/12/25 Rx mg tablet ondansetron 4 mg disintegrating 4 mg PO Q8H PRN nausea and 08/11/25 08/12/25 Rx tablet vomiting #30 tabs Allergies Allergy/AdvReac Type Severity Reaction Status Date / Time No Known Drug Allergies Allergy Verified 08/10/25 19:51 Exam Vital Signs (past 8 hours): Oxygen Delivery Method Room Air Narrative Exam Narrative: Const General: healthy appearing, comfortable and no acute distress Orientation: alert and oriented x3 HENMT Ears: hearing grossly normal bilaterally Eyes Visual Michelle: normal visual michelle by confrontation Conjunctivae: conjunctivae normal Sclera: sclerae normal EOM: EOM intact bilaterally Resp Effort & Inspection: normal respiratory effort and able to speak in complete sentences Cardio Rate: regular rate GI Palpation: soft, gravid, +RUQ pain Extrem General: no pedal edema and no calf tenderness Objective Labs 08/11/25 06:14 08/11/25 06:14 Assessment & Plan Assessment and plan (1) Cholecystitis, acute with cholelithiasis: Qualifiers: Biliary obstruction: without biliary obstruction Qualified Code(s): K 80.00 - Calculus of gallbladder with acute cholecystitis without obstruction Status: Acute Plan Symptomatic cholelithiasis Plan of Treatment: Plan to control symptoms until after delivery Patient desires lap choley after where possible She will return for new or worsening symptoms D/W Dr. Hawkins Time-Based Coding :: [TOTAL MINUTES] spent with patient and on the chart (including review of chart, obtaining history, exam, reviewing outside data, placing orders, documenting exam and treatment plan, and counseling patient) on [DATE]. PROFEE Director Of Child Welfare Services Document charge(s): Yes Charge Codes Inpatient/observation care including admit and discharge same day: [id number]
== END 2025-08-11 07:35 | disposition home or self-care (01) ==
LOC: ED 23:30 → AC 08-11 06:51
PROVIDERS: Emergency Medicine; Admitting Provider Surgery; Emergency Provider Emergency Medicine; PCP Student in an Organized Health Care Education/Training Program; Referring Provider Emergency Medicine; Visit Provider Surgery
DX: O26.613 Liver and biliary tract disorders in pregnancy, third trimester (principal); K80.20 Calculus of gallbladder without cholecystitis without obstruction; F19.11 Other psychoactive substance abuse, in remission; Z3A.35 35 weeks gestation of pregnancy
CPT/HCPCS: 36415; 76705; 80053; 81001; 83690; 85025; 85610; 85730; 96365; 96367; 96375; 99284; G0378; J0131; J0696; J1171; J7030; J7050

== ENCOUNTER 2025-08-20 12:28 | Outpatient (CLI) | payer OTHER, SELFPAY ==
[2025-08-11 01:41] VITALS: BMI 43.0
== END 2025-08-20 13:15 | disposition home or self-care (01) ==
LOC: OB 08-21 08:54
PROVIDERS: PCP Student in an Organized Health Care Education/Training Program; Referring Provider Student in an Organized Health Care Education/Training Program; Visit Provider Student in an Organized Health Care Education/Training Program
DX: O99.213 Obesity complicating pregnancy, third trimester (principal); E66.9 Obesity, unspecified; Z3A.36 36 weeks gestation of pregnancy
CPT/HCPCS: 59025; G0378; G0379

== ENCOUNTER 2025-08-25 13:52 | Outpatient (CLI) | payer OTHER, SELFPAY ==
[2025-08-11 01:41] VITALS: BMI 43.0
== END 2025-08-25 14:35 | disposition home or self-care (01) ==
LOC: LABOR 14:42 → OB 08-26 14:35
PROVIDERS: PCP Student in an Organized Health Care Education/Training Program; Referring Provider Student in an Organized Health Care Education/Training Program; Visit Provider Student in an Organized Health Care Education/Training Program
DX: O36.8130 Decreased fetal movements, third trimester, not applicable or unspecified (principal); O99.213 Obesity complicating pregnancy, third trimester; E66.9 Obesity, unspecified; Z3A.37 37 weeks gestation of pregnancy
CPT/HCPCS: 59025; G0378; G0379

== ENCOUNTER 2025-09-02 10:05 | Observation (INO) | payer OTHER, SELFPAY ==
[2025-08-11 01:41] VITALS: BMI 43.0
== END 2025-09-02 10:52 | disposition home or self-care (01) ==
PROVIDERS: Admitting Provider Student in an Organized Health Care Education/Training Program; PCP Student in an Organized Health Care Education/Training Program; Referring Provider Student in an Organized Health Care Education/Training Program; Visit Provider Student in an Organized Health Care Education/Training Program
DX: O99.213 Obesity complicating pregnancy, third trimester (principal); E66.9 Obesity, unspecified; Z3A.38 38 weeks gestation of pregnancy
CPT/HCPCS: 59025; G0378; G0379

== ENCOUNTER 2025-09-07 05:19 | Inpatient (IN) | payer OTHER, SELFPAY ==
[2025-08-11 01:41] VITALS: BMI 43.0
[2025-09-07 06:44] LABS: Add Manual Diff / Slide Review NO; Hematocrit 38.8 % (36-46); Hemoglobin 13.4 g/dL (12.0-16.0); Lymphocytes Absolute Auto 1600 /uL (1100-4500); Mean Corpuscular HGB Conc 34.6 % (30-36); Mean Corpuscular Hemoglobin 31.2 PG (26-34); Mean Corpuscular Volume 90.2 fL (80-100); Platelet Count 151 X10^3/uL (150-400)
[2025-09-07] MEDS: CITRIC ACID/SODIUM CITRATE 15 ML SOLUTION 30 ML PO (07:41)
--- NOTE | 2025-09-07 07:43 | P.HPOB_ITS ---
OB HPI History of Present Condition Chief complaint: repeat BYRON Calculator 2 Estimated Delivery Date Method Current WG Current Estimate 09/12/25 Ultrasound #1 39w 2d Other Estimates 08/19/25 LMP (Certain) 42w 5d Estimated Gestational Age (weeks): 39w2d : 3 Para: 2 Narrative: 29-year-old presenting for scheduled repeat . has been complicated by acute cholecystitis during with planned cholecystectomy to follow . also complicated by panic disorder with auditory hallucinations currently stable and baseline BMI of 43, BMI today 41. care: good care Dating criteria OB: based on LMP only Ultrasounds: normal 1st trimester US and normal mid trimester US Medical complications OB: other (cholecystitis ) Indications Operative indications ( section): previous uterine surgery Preadmission Labs Last OB Lab Results: 2 Blood Type O Negative Today, 06:30 Antibody Screen Positive A Today, 06:30 Hct, (36-46) 38.8 % Today, 06:30 Hgb, (12.0-16.0) 13.4 g/dL Today, 06:30 Hep Bs Antigen, (NEGATIVE) Negative s/c 04/16/25, 10: 36 Hepatitis C Antibody, (NEGATIVE) Negative s/c 5, 10:36 Rubella Antibody, (>15) 27.7 IU/mL 04/16/25, 10:36 VZV IgG Antibody, (Non Reactive) Reactive 5, 10:36 Glucose 1 Hr 50 gm, (76-139) 125 mg/dL 06/11/25, 1 1:55 Hemoglobin A1c, (4.0-6.0) 4.1 % 04/16/25, 10:3 6 -: Chlamydia screen: negative and Gonorrhea screen: negative -: PAP smear: Normal (01/22/25) Genetic Screens: Quad screen: Normal Prior (ies) Past Pregnancies Del. Date GA/Weeks Labor Lgth Wt Sex Route Outcome Anesthesia Place Delv Breastfeed Preg Comp Name 08/13/14 ~40 14 9 lb Male live - full [facility] epidural [place] (not [place]) ~4 months Steven 02/27/22 ~39 8 lb Female live - full [facility] spinal [facility] ~4 months Manuela Evaluation Evaluation Baseline heart rate: 140 Variability: Moderate (6-25) monitor accelerations: Present Monitor Decelerations: Absent Status: Category l PFSH Medical History (Updated 08/13/25 @ 10:26 by Enio Heaton MD) Pneumonia (~2008) Auditory hallucinations Encounter for IUD removal High risk medication use Surgical History (Updated 01/12/25 @ 11:09 by Mary Tee, RN) History of root canal procedure (~2022) History of delivery Family History (Updated 01/12/25 @ 11:12 by Mary Tee RN) Father Stroke Alcoholism Grandfather Lung cancer Heavy smoker Granddaughter Pneumonia Social History marital status: number of children: 2 household members: spouse and children lives independently: Yes caregiver/support person: Yes housing: apartment pets and animals: Yes (dogs, cats) education level: vocational occupational status: unemployed current occupational exposures/hazards: No special dixie needs: No travel history: over 6 months ago seatbelt use: always water heater temp set < 120 deg: Yes working smoke detector in home: Yes fire extinguisher in home: Yes carbon monox detector in home: Yes firearms in home: Yes firearms unloaded and locked: Yes do you feel safe at home: Yes Tobacco: How many years used: 15 quit status: considering quitting second hand exposure: No alcohol intake: former substance use type: former substance user well-balanced diet: about half the time daily servings fruits/ve-4 caffeine: No Type(s) of exercise: other Meds Home Medications and Allergies Home Medications ?Medication ?Instructions ?Recorded ?Confirmed ?Type [id number] 400 mcg-om3 35 mg-dha 25 tab PO 01/12/2508/11 History mg-epa 5 mg-fish oil chewable tablet hydrocodone 5 mg-acetaminophen 325 1 tab PO Q4H PRN pa in #30 tabs 08/11/25 09/02/25 Rx mg tablet ondansetron 4 mg disintegrating 4 mg PO Q8H PRN nausea and 08/11/25 09/02/25 Rx tablet vomiting #30 tabs Allergies Allergy/AdvReac Type Severity Reaction Status Date / Time No Known Drug Allergies Allergy Verified 09/07/25 05:36 Review of Systems Review of Systems Narrative: no contractions - LOF + movement - vaginal bleeding OB Exam Narrative Exam Narrative: GEN: comfortable appearing Pulm: breathing comfortably on RA ABd: gravid MSK: laying in bed, moving all extremities neuro: non-focal Objective Labs 09/07/25 06:30 Labs: Laboratory Results - last 24 hr 09/07/25 06:30 WBC 6.2 RBC 4.30 Hgb 13.4 Hct 38.8 MCV 90.2 MCH 31.2 MCHC 34.6 RDW 14.4 Plt Count 151 Neut % (Auto) 66.5 Lymph % (Auto) 26.5 [place] % (Auto) 6.4 Eos % (Auto) 0.4 L Baso % (Auto) 0.2 Neut # (Auto) 4100 Lymph # (Auto) 1600 [place] # (Auto) 400 Eos # (Auto) 0 Baso # (Auto) 0 Blood Type O Negative Antibody Screen Positive A Antibody Identification See Comments Assessment and Plan Assessment and Plan Assessment and Plan narrative: 29-year-old presenting for scheduled repeat . # SIUP at term # previous uterine surgery: - admit to LD - continuous monitoring - ancef for surgical ppx - Anesthesia consult - CBC, TS # Acute cholecystitis in : potentially planning for cholecystectomy tomorrow pending complications with CS - general surgery aware of admission, willcontact following to plan cholecytectomy Time-Based Coding :: [TOTAL MINUTES] spent with patient and on the chart (including review of chart, obtaining history, exam, reviewing outside data, placing orders, documenting exam and treatment plan, and counseling patient) on [DATE].
[2025-09-07] MEDS: LACTATED RINGERS 1,000 ML 999 ML IV ×2 (07:55→09:13)
--- NOTE | 2025-09-07 08:25 | SUR.OPER ---
Supine on Padded OR bed, head on pillow, safety belt at thigh, arms secured on padded arm boards at <90 degrees abduction. Bump under right buttock. Legs uncrossed, gel pad to heels, tape over blanket to lower legs.
--- NOTE | 2025-09-07 08:37 | SUR.OPER ---
TIME 0812
[2025-09-07] MEDS: ACETAMINOPHEN IV 1,000 MG/100 ML VIAL 400 MG IV (09:00)
--- NOTE | 2025-09-07 09:35 | P.OP_ITS ---
Operative Date/Time/Diagnoses Date of procedure: 09/07/25 Time of procedure: 08:24 Pre-op diagnosis: previous uterine surgery Post-op diagnosis: same Procedure & Clinicians Procedure: repeat low transverse Same procedure(s) as scheduled: Yes Indications: previous Surgeon: Aleksandra Valenzuela Click Yes if Unassisted: No Suspect Artist Supervisor: Carmela Castellon Reason for Suspect Artist Supervisor: Suspect Artist Supervisor required for the safe, effective, and timely completion of this surgery. The fire control assistant was necessary to retract upon entry into the abdomen and uterus. Assisted with delivery of the infant with fundal pressure. Assisted with closure with retraction, holding suture, and closure of the contralateral fascia. Anesthesia Type: Spinal Operative Notes Findings: Normal uterus, ovaries, and tubes Closure Type: primary Specimen(s): cord blood Intraoperative meds administered: Pitocin Applied: Catheter Estimated Blood Loss (mL): 450 Blood products transfused: none Procedure in detail: OPERATIVE COURSE: The patient was taken to the operating room where spinal anesthesia was placed. She was then prepared and draped in the normal sterile fashion in the dorsal supine position with a leftward tilt. Anesthesia was tested and found to be adequate. A Pfannensteil skin incision was then made with the scalpel along the previous incision. Previous scar was excised due to thickened scar tissue with elipitcal incision around the scar tissue. The incision was then carried through to the underlying layer of fascia with the bovie + scalpel. The fascia was incised in the midline and the incision extended laterally with the Kelly scissors. The superior aspect of the fascial incision was then grasped with Ravin clamps, elevated with the help of the surgical scheduler, and the underlying rectus muscles dissected off bluntly and sharply where needed. Attention was then turned to the inferior aspect of the incision which, in a similar fashion, was grasped, tented up with Ravin clamps, and the rectus muscle dissected off bluntly and sharply with Kelly scissors. The rectus muscles were then in the midline, and the peritoneum was identified and entered bluntly. The peritoneal incision was then extended with good visualization of the bladder. Retraction was provided by the surgical scheduler. Lb retractor was placed for improved visualizaiton. No bladder flap was created The lower uterine segment incised in a transverse fashion with the scalpel, with the surgical scheduler providing suction. The uterine incision was then extended superolaterally by pulling superolaterally on both sides. Membranes were ruptured and fluid was clear. The bladder blade was removed the 's head was flexed out of DENIZ position and delivered atraumatically, with fundal pressure by the surgical scheduler. The nose and mouth were suctioned with bulb suction and the cord was clamped and cut after a 60 second delay. The infant was handed off to the waiting nursing staff. Cord blood was collected. Time of delivery was 08:36. APGARS were 9 and 9 at one and five minutes respectively. The placenta was then delivered with gentle cord traction. The uterus was then exteriorized and cleared of all clots and debris. The uterine incision was repaired with 0 Vicryl in a running, locked fashion. A second layer of the same suture was used to obtain excellent hemostasis. Lb retractor was removed. The gutters were cleared of all clots. Hysterotomy was investigated and found to be hemostatic. The peritoneum was closed with 3-0 vicryl. The fascia was reapproximated with 0 monocryl in a running fashion. The subcutaneous tissue was reapproximated with 3-0 vicryl. The skin was closed with 4-0 monocryl. The surgical scheduler helped with retraction during closures. SPONGE AND NEEDLE COUNTS: Correct x3. DRESSING: Aquacel ANTICOAGULATION: SCDs applied prior to Surgery Preop antibiotics given (see MAR). The patient was taken to recovery room having tolerated procedure well. Complications: none [place] Baby 1: Delivery Date: 09/07/25 Delivery Time: 08:36 Gender: Female Presentation: vertex Position: Left Occiput Anterior Placental Delivery Description: Expressed Cord Vessel Description: 3 Vessels score (1 min): 9 score (5 min): 9 Post-operative Condition: stable Disposition: PACU Aftercare: routine postop
[2025-09-07 09:36] VITALS: BP 110/55; PULSE 71; RESP 16; TEMP 36.2; O2SAT 97
[2025-09-07 09:40] VITALS: BP 111/59; PULSE 69; RESP 17; O2SAT 100
[2025-09-07 09:45] VITALS: BP 100/59; PULSE 67; RESP 17; O2SAT 99
[2025-09-07 09:50] VITALS: BP 108/59; PULSE 65; RESP 20; TEMP 36.1; O2SAT 99
[2025-09-07 09:58] VITALS: BP 110/72; PULSE 62; RESP 17; TEMP 36.2; O2SAT 99
[2025-09-07] MEDS: KETOROLAC 30 MG/ML VIAL IV ×2 (15:41→22:48)
--- NOTE | 2025-09-07 16:57 | P.CONS_ITS ---
History of Present Illness Consult details Date Patient Seen: 09/07/25 Time Patient Seen: 16:58 Chief complaint: INPT REPEAT C SECTION Reason for consult: Cholecystitis Requesting provider: Aleksandra Valenzuela Narrative: Patient known to our service with symptomatic cholelithiasis. We saw her in the office earlier. We had hoped to get her past delivery prior to cholecystectomy. The patient had an uneventful yesterday and feels well and strongly desires to have her gallbladder removal this admission. She is quite symptomatic from this. We have spoken about the pros and cons of surgery and timing in detail in the office previously. Meds Home Medications and Allergies Home Medications ?Medication ?Instructions ?Recorded ?Confirmed ?Type GOV30-CK 400 mcg-om3 35 mg-dha 25 tab PO 01/12/2508/11 History mg-epa 5 mg-fish oil chewable tablet hydrocodone 5 mg-acetaminophen 325 1 tab PO Q4H PRN pa in #30 tabs 08/11/25 09/02/25 Rx mg tablet ondansetron 4 mg disintegrating 4 mg PO Q8H PRN nausea and 08/11/25 09/02/25 Rx tablet vomiting #30 tabs Allergies Allergy/AdvReac Type Severity Reaction Status Date / Time No Known Drug Allergies Allergy Verified 09/07/25 05:36 Exam Vital Signs (past 8 hours): - 09/07/25 09:36 09/07/25 09:40 09/07/25 09:45 Temperature 97.2 F L Pulse Rate 71 69 67 Respiratory Rate 16 17 17 Blood Pressure 110/55 L 111/59 L 100/59 L Pulse Oximetry 97 100 99 Oxygen Delivery Method Room Air Room Air Room Air 09/07/25 09:50 09/07/25 09:58 Temperature 97.0 F L 97.1 F L Pulse Rate 65 62 Respiratory Rate 20 17 Blood Pressure 108/59 L 110/72 Pulse Oximetry 99 99 Oxygen Delivery Method Room Air Room Air Oxygen Delivery Method Room Air Narrative Exam Narrative: The patient was when we visited her hospital room this evening. We chatted about laparoscopic cholecystectomy with cholangiogram briefly. The patient is comfortable with the information that was provided during a recent office visit. We will plan for laparoscopic cholecystectomy with intraoperative cholangiography tomorrow. The risks, benefits and options were explained to the patient in detail. She understands and is agreeable to proceed. Objective Labs 09/07/25 06:30 Labs: Laboratory Results - last 24 hr 09/07/25 06:30 WBC 6.2 RBC 4.30 Hgb 13.4 Hct 38.8 MCV 90.2 MCH 31.2 MCHC 34.6 RDW 14.4 Plt Count 151 Neut % (Auto) 66.5 Lymph % (Auto) 26.5 [place] % (Auto) 6.4 Eos % (Auto) 0.4 L Baso % (Auto) 0.2 Neut # (Auto) 4100 Lymph # (Auto) 1600 [place] # (Auto) 400 Eos # (Auto) 0 Baso # (Auto) 0 Blood Type O Negative Antibody Screen Positive A Antibody Identification Anti-D PFSH Medical History (Updated 08/13/25 @ 10:26 by Enio Heaton MD) Pneumonia (~2008) Auditory hallucinations Encounter for IUD removal High risk medication use Surgical History (Updated 01/12/25 @ 11:09 by Mary Tee RN) History of root canal procedure (~2022) History of delivery Family History (Updated 01/12/25 @ 11:12 by Mary Tee RN) Father Stroke Alcoholism Grandfather Lung cancer Heavy smoker Granddaughter Pneumonia Social History marital status: number of children: 2 household members: spouse and children lives independently: Yes caregiver/support person: Yes housing: apartment pets and animals: Yes (dogs, cats) education level: vocational occupational status: unemployed current occupational exposures/hazards: No special dixie needs: No travel history: over 6 months ago Safety seatbelt use: always water heater temp set < 120 deg: Yes working smoke detector in home: Yes fire extinguisher in home: Yes carbon monox detector in home: Yes firearms in home: Yes firearms unloaded and locked: Yes do you feel safe at home: Yes Tobacco & Substance Use Tobacco: How many years used: 15 quit status: considering quitting second hand exposure: No alcohol intake: former substance use type: former substance user Diet and Exercise well-balanced diet: about half the time daily servings fruits/ve-4 caffeine: No Type(s) of exercise: other Assessment & Plan Assessment and plan (1) Cholecystitis, acute with cholelithiasis: Qualifiers: Biliary obstruction: without biliary obstruction Qualified Code(s): K 80.00 - Calculus of gallbladder with acute cholecystitis without obstruction Status: Acute Plan Plan laparoscopic cholecystectomy with cholangiogram. The risks, benefits and options regarding the procedure were explained to the patient in detail. Risk discussion included but not limited to: open incision, bleeding, infection, bile duct injury, bile leak, abscess, drain, need for ERCP, retained stone. The patient was encouraged to ask questions and they were answered to their satisfaction. The patient understands and is agreeable to proceed. Time-Based Coding :: [TOTAL MINUTES] spent with patient and on the chart (including review of chart, obtaining history, exam, reviewing outside data, placing orders, documenting exam and treatment plan, and counseling patient) on [DATE]. PROFEE Charge Codes Inpatient or Observation consultation: [id number]
[2025-09-07] MEDS: ACETAMINOPHEN 325 MG TABLET 650 MG PO (17:12)
[2025-09-08] VITALS (11 sets, daily range): BP systolic 91–130; BP diastolic 50–73; PULSE 64–111; RESP 11–33; TEMP 36.5–36.8; O2SAT 96–100
--- NOTE | 2025-09-08 | PATH_ITS ---
[facility] Accession Number: [id number] No. of containers..01 Tissue . 01 Material submitted: . gallbladder - GALLBLADDER . 01 Diagnosis: GALLBLADDER, CHOLECYSTECTOMY: Mild chronic calculous cholcystitis. Negative for dysplasia or malignancy. CHEMA 09/14/2025 1134 Local . 01 Electronically signed: . Purvi Urbina MD, Pathologist NPI- [id number] . 01 Gross description: . Received in formalin with two patient identifiers and gallbladder, is a 7.5 x 3.2 x 2.5 cm intact gallbladder. The stapled cystic duct margin is inked blue. The serosa is purple-brown, smooth and congested. The mucosa is green and velvety with yellow stippling and a 0.3 cm thick wall. The lumen contains green, viscous bile and multiple yellow, nodular calculi up to 0.5 cm. Lymph nodes are not grossly identified. Metal Slitter sections with cystic duct margin and gallbladder wall are submitted in cassette A1. ([id number]) /CHEMA 09/11/2025 0918 Local . 01 Pathologist provided ICD-10: K80.10 . 01 CPT . 149283 Performed at: [address] [facility] [facility], [place], [place] [id number] MD Anthony Posey MD Phone: [phone]
[2025-09-08] MEDS: ACETAMINOPHEN 325 MG TABLET 650 MG PO ×4 (00:11→22:35)
[2025-09-08] MEDS: KETOROLAC 30 MG/ML VIAL IV (05:29)
[2025-09-08 06:29] LABS: Add Manual Diff / Slide Review NO; Hematocrit 30.7 % (36-46); Hemoglobin 10.8 g/dL (12.0-16.0); Lymphocytes Absolute Auto 2000 /uL (1100-4500); Mean Corpuscular HGB Conc 35.2 % (30-36); Mean Corpuscular Hemoglobin 31.8 PG (26-34); Mean Corpuscular Volume 90.4 fL (80-100); Platelet Count 142 X10^3/uL (150-400)
--- NOTE | 2025-09-08 09:56 | PM.OBPN.1 ---
Subjective - OB Subjective Patient comments: no complaints and pain well controlled baby status: doing well and nursing well Narrative: sleeping comfortably. planned for cholecystectomy later today. Per Rn, bleeding controlled, pain controlled. well Date Patient Seen: 09/08/25 Time Patient Seen: 09:56 Interval history: Pt tolerating post-op pain well with oral medications. She is without significant difficulty. She is ambulating. She has voided and is passing flatulus. Exam Vital Signs (past 8 hours): Oxygen Delivery Method Room Air Narrative Exam Narrative: Gen: well appearing, NAD Skin: no rashes or pallor Abd: appropriate post-op tenderness, fundus firm below Umbilicus. Dressing with midline saturated, not extending past line drawn yesterdya MSK: scant edema Objective Labs 09/08/25 06:14 Labs: Laboratory Results - last 24 hr 09/08/25 06:14 WBC 7.4 RBC 3.40 L Hgb 10.8 L Hct 30.7 L MCV 90.4 MCH 31.8 MCHC 35.2 RDW 14.3 Plt Count 142 L Neut % (Auto) 65.1 Lymph % (Auto) 26.8 [place] % (Auto) 7.7 Eos % (Auto) 0.2 L Baso % (Auto) 0.2 Neut # (Auto) 4800 Lymph # (Auto) 2000 [place] # (Auto) 600 Eos # (Auto) 0 Baso # (Auto) 0 Assessment & Plan Assessment and Plan (1) Cholecystitis, acute with cholelithiasis: Status: Acute Plan day: 1 plan OB: routine care, routine postop care and follow up 6 weeks Comments: 29-year-old POD1 following repeat LTCS. CS uncomplicated. sleeping todya but per RN, doing well PP. Scheduled for cholecystectomy later tpday with general surgery - Pain well controlled on oral medications, continue tylenol, ibuprofen and PRN oxycodone - Bleeding minimal - control plans: TBD - f/up for f/up at 6week PP visit Time-Based Coding :: [TOTAL MINUTES] spent with patient and on the chart (including review of chart, obtaining history, exam, reviewing outside data, placing orders, documenting exam and treatment plan, and counseling patient) on [DATE].
[2025-09-08] MEDS: SENNOSIDES 8.6 MG TABLET PO (12:01)
[2025-09-08] MEDS: PRENATAL VIT,CALC/IRON/FOLIC 1 TABLET 1 TAB PO (12:01)
[2025-09-08] MEDS: LANOLIN OINT 7 GM 1 APPLIC TOP (12:01)
[2025-09-08] MEDS: IBUPROFEN 600 MG TABLET PO (13:41)
--- NOTE | 2025-09-08 17:00 | DI.RAD.S_ITS ---
PROCEDURE: XR CHOLANGIOGRAM OPERATIVE INDICATIONS: Per surgeon COMPARISON: [facility], , US ABDOMEN LIMITED, 08/10/2025, 20:33. FINDINGS: Biliary ducts: The surgeon injected contrast into the biliary ducts after cannulation of the cystic duct stump. Visualized intra- and extrahepatic bile ducts are normal in caliber, without strictures. No intraluminal filling defects to suggest retained ductal stones or sludge. No evidence for iatrogenic ductal injury. Duodenum: Contrast flows promptly through the sphincter of Oddi into the duodenum, which appears normal in caliber. IMPRESSION: Intraoperative cholangiogram without stenosis, filling defect or extravasation. Dictated by: Yvonne Menard M.D. on 09/08/2025 at 20:43 Approved by: Yvonne Menard M.D. on 09/08/2025 at 20:43
[2025-09-08] MEDS: LACTATED RINGERS 1,000 ML 42 ML IV ×2 (18:02→20:40)
--- NOTE | 2025-09-08 18:49 | SUR.OPER ---
Supine on padded OR bed, head on pillow, left arm secured on padded arm board at <90 degrees abduction, right arm padded with gel and tucked. IV sites padded. Legs uncrossed, safety belt at thigh, tape over blanket over lower legs. Foot board.
[2025-09-08] MEDS: BUPivacaine 0.25% W/ EPI (PF) 30 ML VIAL 60 ML INJ (19:02)
--- NOTE | 2025-09-08 19:50 | P.OP_ITS ---
Operative Date/Time/Diagnoses Date of procedure: 09/08/25 Time of procedure: 19:50 Pre-op diagnosis: Symptomatic cholelithiasis Post-op diagnosis: same Procedure & Clinicians Procedure: Laparoscopic cholecystectomy with IOCG Same procedure(s) as scheduled: Yes Indications: 29yo F, symptomatic cholelithiasis Surgeon: Enio Heaton Assisted?: No Anesthesia Type: General Operative Notes Findings: Chronic inflammation, many stones in gallbladder, IOCG normal. Closure Type: primary Specimen(s): other (gallbladder) Applied: none Estimated Blood Loss (mL): 5 Blood products transfused: none Procedure in detail: After informed consent and satisfactory general endotracheal anesthesia, the abdomen was prepped and draped in the usual sterile manner.? The patient received appropriate preoperative antibiotics and DVT prophylaxis.? Surgical time-out was performed with all team members in agreement.? The pneumoperitoneum was established under direct vision using the Hernandez direct trocar cutdown technique.? An 0 Vicryl [id number] suture was placed on the umbilical fascia.? The 10 mm 30 degree lens was inserted and no trauma secondary to the trocar insertion was noted.? We performed bilateral laparoscopic TAP blocks using 25 cc of 0.25% Marcaine with epinephrine.? The additional 10 cc of local was used in the skin and subcutaneous tissues at the incision sites for a total of 60 cc of local.? The patient was placed in reverse Trendelenburg, [id number] position.? The fundus of the gallbladder was grasped and retracted over the liver.?The gallbladder was aspirated of 60cc of bile to aid grasping. This demonstrated many stones in gallbladder. The infundibulum was retracted laterally for proper exposure of the cystic duct and artery.? Critical view of safety was achieved with 2 distinct structures entering the gallbladder and segment 5 of the liver posterior.? A cholangiogram was performed using a yellow ureteral catheter through the Arriola clamp.? The cystic duct and cystic artery were skeletonized with hook cautery.? A clip was placed on the cystic duct next to the gallbladder.? A ductotomy was made with laparoscopic Metzenbaum scissors.? The cholangiogram was normal.? It demonstrated normal caliber right and left hepatic ducts, common hepatic duct and common bile duct without filling defect, mass or stricture.? The contrast flowed unobstructed into the duodenum.? The cholangiogram catheter was removed and the cystic duct was doubly clipped and divided.? The cystic artery was similarly skeletonized, doubly clipped and divided with laparoscopic Metzenbaum scissors.? The adhesions between the gallb ladder and the liver were divided with hook cautery.? The gallbladder was placed into an endo-pouch and removed.? The gallbladder bed and clips were inspected and no bleeding or bile drainage was noted.? The trocars were removed and there was no bleeding noted at the trocar sites.? The 0 Vicryl [id number] suture was tied and there were no palpable fascial defects.? The skin incisions were closed using 4-0 Monocryl in a subcuticular manner.? Dermabond glue was applied as a final dressing.? The estimated blood loss was minimal.? The instrument, sponge and needle counts were all correct x2.? The patient tolerated the procedure well and was extubated in the operating room and transported to the recovery area in stable condition. Complications: none Post-operative Condition: stable Disposition: PACU Plan for aftercare: PACU then [facility]
[2025-09-08] MEDS: fentaNYL 100 MCG/2 ML INJ 50 MCG IV ×2 (19:55→20:10)
[2025-09-08] MEDS: ONDANSETRON 4 MG/2 ML INJ IV (20:09)
--- NOTE | 2025-09-08 20:40 | SUR.PHASEI ---
Patient resting much more comfortably after administration of pain medication and ativan. Placed patient on oxygen at 3 liters via nasal cannula. Nausea relieved. VSS.
[2025-09-08] MEDS: SIMETHICONE 80 MG TABLET PO (22:00)
[2025-09-09 00:37] VITALS: TEMP 36.9
[2025-09-09] MEDS: IBUPROFEN 600 MG TABLET PO ×3 (00:37→11:49)
[2025-09-09] MEDS: ACETAMINOPHEN 325 MG TABLET 650 MG PO ×2 (06:50→11:50)
[2025-09-09 06:51] VITALS: TEMP 36.8
[2025-09-09] MEDS: SIMETHICONE 80 MG TABLET PO (06:52)
[2025-09-09] MEDS: MAGNESIUM HYDROXIDE 30 ML UDC PO (06:52)
--- NOTE | 2025-09-09 08:17 | PM.OBDS.1 ---
Discharge Providers Provider Date of admission: 09/07/25 05:19 Discharge Date: 09/09/25 Primary care physician: Rebeka Hawkins MD Consults: 09/07/25 09:59 Consult to [facility] Routine Comment: Discharge provider: Aleksandra Valenzuela MD Summary Hospital Course Date Patient Seen: 09/09/25 Time Patient Seen: 07:30 Hospital Course: 29-year-old who presented for scheduled repeat . had been complicated by acute cholecystitis during with planned cholecystectomy to follow . also complicated by panic disorder with auditory hallucinations currently stable and baseline BMI of 43, BMI today 41. uncomplicated. Scar revision was completed at time of CS as well. time of was 08:36. APGARS were 9/9. fluid was clear. Placenta was complete with 3 vessel cord. on day 1, Margaret underwent laproscopic cholecystectomy which was uncomplicated, see procedure note for details. ON day of discharge, pain is well controled on oral medications. She is voiding and passing gas. Bleeding is well controlled. Incision from CS is healing well and there are no signs of infection. She is without difficulty vitals have been stable in nml range Peripartum Data Infant Delivery Method: Section complications: none Discharge Diagnosis (1) Cholecystitis, acute with cholelithiasis: Status: Acute Time Spent with Patient Time attestation: Total time spent providing and/or coordinating discharge services: Objective Labs 09/08/25 06:14 Exam Vital Signs (past 8 hours): - 09/09/25 00:37 09/09/25 06:51 Temperature 98.4 F 98.3 F Oxygen Delivery Method Nasal Cannula Oxygen Flow Rate 3 Narrative Exam Narrative: Gen: well appearing, NAD Skin: no rashes or pallor Abd: appropriate post-op tenderness, fundus firm below Umbilicus. Dressing removed, incision well approximated, no signs of infection laproscopoic port sites reviewed and appear to be healing well. MSK: scant edema Discharge Plan Discharge Plan Patient Disposition: Home Discharge orders & Medications Prescriptions: New oxycodone 5 mg Tablet 5 mg PO Q4H PRN (Reason: Pain, Moderate (4-6)) Qty: 20 0RF polyethylene glycol 3350 [Miralax] 17 gram/dose powder 17 g PO DAILY Qty: 238 0RF Continued [id number] oil 400 mcg-35 mg -25 mg-5 mg tablet,chewable PO ondansetron 4 mg tablet,disintegrating 4 mg PO Q8H PRN (Reason: nausea and vomiting) Qty: 30 1RF Discontinued hydrocodone-acetaminophen 5-325 mg tablet 1 tab PO Q4H PRN (Reason: pain) Qty: 30 0RF Follow up/Referrals: Rebeka Hawkins MD [Primary Care Provider, Family Practice] - 10/20/25 10:30 am Referral Note: please arrive 15 minutes prior to your scheduled appointment time. Visit Report/Discharge Packet Instructions: DI for Laparoscopic Cholecystectomy Stand Alone Forms: Discharge: Care, [facility], Patient Portal/API, Stroke Signs & Symptoms, Influenza Vaccine Info, Notice of Privacy Practices, Inpatient vs Outpatient, Pneumococcal Vaccine Info, Pt. Rights & Responsibilities Discharge Data Primary Care Provider: Rebeka Hawkins Discharges patient from system. Discharge Date/Time: 09/09/25 12:10
[2025-09-09 09:59] VITALS: BP 107/61; PULSE 80; RESP 16; TEMP 36.9
[2025-09-09] MEDS: PRENATAL VIT,CALC/IRON/FOLIC 1 TABLET 1 TAB PO (10:31)
[2025-09-09] MEDS: SENNOSIDES 8.6 MG TABLET PO (10:31)
== END 2025-09-09 12:10 | disposition home or self-care (01) | DRG 787 ==
PROVIDERS: Surgery; Admitting Provider Family Medicine; PCP Student in an Organized Health Care Education/Training Program; Referring Provider Family Medicine; Visit Provider Family Medicine
PROC: 10D00Z1 Extraction of Products of Conception, Low, Open Approach (ICD-10-PCS; CPT 59514; principal; 2025-09-07 07:45)
PROC: 0FT44ZZ Resection of Gallbladder, Percutaneous Endoscopic Approach (ICD-10-PCS; CPT 47563; principal; 2025-09-08 17:00)
DX: O34.211 Maternal care for low transverse scar from previous cesarean delivery (principal); K80.00 Calculus of gallbladder with acute cholecystitis without obstruction; O99.62 Diseases of the digestive system complicating childbirth; Z3A.39 39 weeks gestation of pregnancy; Z37.0 Single live birth; O99.334 Smoking (tobacco) complicating childbirth
CPT/HCPCS: 36415; 59050; 74300; 85025; 86850; 86870; 86900; 86901; G0379; J0131; J0330; J0689; J1100; J1171; J1885; J2060; J2274; J2405; J2704; J3010; J3490; J7120; Q9967